=== PATIENT | male | born 1940 | race Caucasian/White ===

== ENCOUNTER 2022-02-12 10:54 | Emergency (ER) | payer OTHER, SELFPAY ==
[2022-02-12] VITALS (75 sets, daily range): BP systolic 117–180; BP diastolic 52–94; PULSE 48–69; RESP 12–26; TEMP 36.8; O2SAT 92–100
--- NOTE | ~2022-02-12 | CT_ITS ---
EXAMINATION: CT abdomen pelvis w con DATE: 02/12/2022 12:37 INDICATION: Abdominal pain, nausea and vomiting TECHNIQUE: Computed tomography (CT) of the abdomen and pelvis was performed with 100 mL Omnipaque-350 intravenous contrast. Automated exposure control and iterative reconstruction technique were employe d. The dose-length product was 891.61 mGy-cm. COMPARISON: None FINDINGS: Mild emphysema at the right lower lobe. 4-5 mm nodule in the left lower lobe and 6 mm triangular like ly intrafissural lymph node at the caudal aspect of the right major fissure. Heart size is normal. At herosclerotic coronary artery calcification. No pericardial or pleural effusion. Small sliding-type h iatal hernia. Cholecystectomy clips the gallbladder fossa. There is thrombosis of the left portal vei n and the posterior branches of the right portal vein. Small amount of perihepatic ascites along the posterior margin of the right hepatic lobe. Secondary likely transient hepatic attenuation difference in the liver. Spleen, bilateral adrenal glands and left kidney are normal. Cortical scarring and 1.6 cm rim calcified cyst at the upper pole of the right kidney. Multiple dystrophic calcifications in t he pancreas which is likely sequela of chronic pancreatitis. Bowels including the appendix are normal . Decompressed bladder is normal. No abscess or free intraperitoneal gas. There is calcified atheroscle rosis of the aorta and many of the other arteries. No pathologically enlarged abdominal or pelvic lym phadenopathy. 4 and L5 laminectomies with combined instrumented L4-S1 anterior and posterior spinal f usions with interbody bone graft cages and bilateral vertical jamshid and pedicle screw fixations. Severe spondylosis at L2-L3 and otherwise mild to moderate spondylosis in the remainder of the lumbar and l ower thoracic spine. IMPRESSION: 1. 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 2. Small sliding-type hiatal hernia. 3. Multiple small pancreatic calcifications consistent with sequela of chronic pancreatitis. 4. Mild emphysema with indeterminate 4-5 mm left lower lobe nodule. Consider optional 12 month follow -up low-dose noncontrast chest CT. Reviewed, dictated and finalized at location A. IMPRESSION: 1. 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 2. Small sliding-type hiatal hernia. 3. Multiple small pancreatic calcifications consistent with sequela of chronic pancreatitis. 4. Mild emphysema with indeterminate 4-5 mm left lower lobe nodule. Consider op tional 12 month follow-up low-dose noncontrast chest CT.
--- NOTE | 2022-02-12 11:02 | ED.ABDPAIN ---
HPI - Abdominal Pain General Chief Complaint: Abdominal Pain Stated Complaint: abd pain (has stage IV bladder cancer) Time Seen by Provider: 02/12/22 10:57 Source: RN notes reviewed History of Present Illness HPI narrative: Patient presents emergency department from home for abdominal pain. Patient states pain began 2 days ago pain is located diffusely throughout the abdomen and radiates around to the back states is associated with nausea but denies any vomiting denies any fevers or chills chest pain shortness of breath or any other symptoms. States he has not take anything for the pain today pain is described as aching and cramping in nature. [facility] Related Data Home Medications Medication Instructions Recorded Confirmed atorvastatin 80 mg tablet mg 02/12/22 02/12/22 metformin 500 mg tablet,extended mg PO 02/12/22 release 24 hr metoprolol succinate 100 mg mg PO 02/12/22 tablet,extended release 24 hr morphine 15 mg tablet,extended mg PO 02/12/22 release oxycodone 10 mg tablet mg 02/12/22 tamsulosin 0.4 mg capsule mg PO 02/12/22 Allergies Allergy/AdvReac Type Severity Reaction Status Date / Time baclofen AdvReac Nausea and Verified 02/12/22 11:06 Vomiting gabapentin AdvReac Nausea and Verified 02/12/22 11:06 Vomiting Review of Systems Review of Systems: Gen.: Denies fevers or chills ENT: Denies congestion Respiratory: Denies shortness of breath or cough CV: Denies chest pain or palpitations GI: See HPI Musculoskeletal: Denies back pain or muscle pain Neuro: Denies numbness, tingling, weakness or focal weakness Skin: Denies rash Except as documented, all other systems reviewed and negative [facility] Past Medical History Medical History (Updated 02/12/22 @ 15:15 by Maurisio Babcock DO) Bladder cancer Social History Social History (Updated 02/12/22 @ 11:04 by Maurisio Babcock DO) Smoking status: Never smoker Exam Narrative: APPEARANCE: No acute distress, nontoxic, resting in bed HEENT: Normocephalic, atraumatic, OMM RESPIRATORY: No respiratory distress, clear to auscultation bilaterally with no rhonchi wheezing or rales CARDIOVASCULAR: RRR s murmur ABDOMINAL: Soft nondistended diffusely tender to palpation no rebound or guarding MUSCULOSKELETAl: Moves all extremities. No clubbing, cyanosis or edema. NEURO: Awake and alert. Following commands, speech normal, no focal deficits SKIN:: Warm, dry. Normal Color PSYCHIATRIC: Normal affect/mood Course Course Emergency Course: Discussed with patient family results of work-up and need for admission and request transfer to [facility] as the patient is treated at [facility] Discussed with Dr. Lagunas for oncology at [facility] distantly request the patient be started on Lovenox the patient is accepted at [facility] under Dr. Rivera Patient plan for transfer in agreement Vital Signs Vital signs: Vital Signs Temperature 98.2 F 02/12/22 11:00 Pulse Rate 61 02/12/22 11:00 Respiratory Rate 20 02/12/22 11:00 Blood Pressure 171/64 H 02/12/22 11:00 Pulse Oximetry 98 02/12/22 11:00 Oxygen Delivery Room Air 02/12/22 11:00 Temperature 98.2 F 02/12/22 11:00 Pulse Rate 59 L 02/12/22 14:15 Respiratory Rate 19 02/12/22 14:15 Blood Pressure 161/66 H 02/12/22 13:16 Pulse Oximetry 97 02/12/22 14:15 Oxygen Delivery Room Air 02/12/22 11:00 MDM - Abdominal Pain Lab Data Result diagrams: 02/12/22 11:07 02/12/22 11:07 Labs: Lab Results 02/12/22 02/12/22 02/12/22 Range/Units 11:07 11:07 11:07 WBC 10.3 H (4.5-10.0) K/mm3 RBC 4.27 L (4.6-6.20) M/mm3 Hgb 13.6 L (14.0-18.0) g/dL Hct 40.6 L (42.0-52.0) % MCV 95.1 (80-100) fl MCH 31.9 (26-34) pg MCHC 33.5 (32-36) g/dl RDW 13.8 (11.5-14.5) % Plt Count 143 L (150-375)
[2022-02-12] MEDS: SODIUM CHLORIDE 0.9% IV 1,000 ML 999 ML IV CONT (11:15)
[2022-02-12 11:16] LABS: Basophils Absolute Auto 0.1 K/mm3 (0.0-0.1); Basophils Percent Auto 0.6 % (0.2-1.2); Eosinophils Absolute Auto 0.2 K/mm3 (0-0.3); Eosinophils Percent Auto 1.9 % (0-4.4); Hematocrit 40.6 % (42.0-52.0); Hemoglobin 13.6 g/dL (14.0-18.0); Immature Granulocyte Absolute 0.03 K/mm3 (0.00-0.031); Immature Granulocyte Percent A 0.3 % (0-0.5); Lymphocytes Absolute Auto 0.89 K/mm3 (0.9-3.2); Lymphocytes Percent Auto 8.6 % (18.3-44.2); Mean Corpuscular HGB Conc 33.5 g/dl (32-36); Mean Corpuscular Hemoglobin 31.9 pg (26-34); Mean Corpuscular Volume 95.1 fl (80-100); Mean Platelet Volume 9.9 fl (7.4-10.4); Monocytes Absolute Auto 1.2 K/mm3 (0.1-0.6); Monocytes Percent Auto 11.2 % (2.6-8.5); Neutrophils Percent Auto 77.4 % (45.5-73.1); Platelet Count Result 143 k/mm3 (150-375); Red Blood Count 4.27 M/mm3 (4.6-6.20); Red Cell Distribution Width 13.8 % (11.5-14.5); White Blood Count 10.3 K/mm3 (4.5-10.0)
[2022-02-12 11:24] LABS: Lactic Acid Reflex 2.4 mmol/L (0.7-2.0)
[2022-02-12 11:25] LABS: Alanine Aminotransferase 99 U/L (6-50); Albumin Level 3.5 g/dL (3.5-5.1); Alkaline Phosphatase 159 U/L (38-126); Anion Gap 12 mmol/L (8-16); Aspartate Amino Transferase 111 U/L (17-59); Bilirubin,Total 1.8 mg/dL (0.2-1.3); Blood Urea Nitrogen 17 mg/dL (9-20); Calcium 8.5 mg/dL (8.4-10.2); Carbon Dioxide 23 mmol/L (22-30); Chloride 102 mmol/L (98-107); Estimated CRCL calculation 69 ml/min; Estimated Glomerular Filt Rate > 60; Glucose 117 mg/dL (65-110); Lipase 75 U/L (23-300); Potassium 4.3 mmol/L (3.4-5.0); Sodium 137 mmol/L (137-145)
[2022-02-12 11:26] LABS: INR 1.3
[2022-02-12 11:27] LABS: Partial Thromboplastin Time 35.8 SECONDS (22.3-36.8)
[2022-02-12 12:47] LABS: Appearance Urine Clear (Clear); Bilirubin Urine 1+ (Negative); Color Urine Orange (Yellow); Glucose Urine UA Trace mg/dL (Negative); Ketones Urine Trace mg/dL (Negative); Leukocyte Esterase Ur Negative LEU/UL (Negative); Nitrate Urine Positive (Negative); Protein Urine 1+ mg/dL (Negative)
[2022-02-12 12:56] LABS: Add Urine Microscopic? YES; Blood Urine Trace-Intact (Negative)
[2022-02-12 12:57] LABS: Mucus Urine Heavy /lpf; RBC Urine 0-2 /hpf (0-2); Squamous Epithelial Cell Urine Few /hpf (Few); WBC Urine 0-3 /hpf (0-3)
[2022-02-12] MEDS: MORPHINE SULFATE (*CRX) 2 MG/ML INJ IV PUSH ×2 (13:33→20:25)
--- NOTE | 2022-02-12 13:39 | ECG_ITS ---
Measurements Intervals [place] Rate: 59 P: 61 PA: 169 QRS: -34 QRSD: 118 T: 48 QT: 499 QTc: 495 Interpretive Statements SINUS BRADYCARDIA LEFT AXIS DEVIATION INTRAVENTRICULAR CONDUCTION DELAY DELAYED PRECORDIAL R/S TRANSITION PROLONGED QT INTERVAL ABNORMAL ECG NO PREVIOUS ECG AVAILABLE FOR COMPARISON Electronically Signed On 02-12-2022 18:38:56 CDT by Evangelist Rand D.O.
[2022-02-12 14:13] LABS: Reflex Lactic Acid Yes or No Add Lactic
[2022-02-12 14:54] LABS: Lactic Acid 2.4 mmol/L (0.7-2.0)
[2022-02-12] MEDS: ENOXAPARIN 100 MG/ML SYRINGE 94 MG SUB-Q (15:52)
[2022-02-12] MEDS: SODIUM CHLORIDE 0.9% IV 1,000 ML 100 ML IV CONT (15:53)
[2022-02-12] MEDS: ONDANSETRON INJ 4 MG/2 ML VIAL IV PUSH (15:55)
[2022-02-12 17:34] LABS: SARS-CoV-2 RNA PCR Negative
--- NOTE | 2022-02-12 18:12 | PC.NURSE ---
updated Ailyn on Covid test result, no guess on appropriate bed assignment
--- NOTE | 2022-02-12 20:17 | PC.NURSE ---
PT NOTES INCREASED PAIN, ASKING FOR PAIN MED. ORDER FOR MORPHINE [address] MG [address] X1 FROM [address] COON
== END 2022-02-12 22:57 | disposition short-term general hospital (02) ==
PROVIDERS: Emergency Provider Emergency Medicine; PCP Family Medicine
DX: I81 Portal vein thrombosis (principal); C67.9 Malignant neoplasm of bladder, unspecified; R00.1 Bradycardia, unspecified
CPT/HCPCS: 36415; 74177; 80053; 81001; 83605; 83690; 85025; 85610; 85730; 93005; 96365; 96366; 96367; 96372; 96375; 96376; 99285; C9803; J0131; J0696; J1650; J2270; J2405; J7030; Q9967; U0003; U0005

== ENCOUNTER 2022-02-26 07:14 | Emergency (ER) | payer OTHER, SELFPAY ==
--- NOTE | ~2022-02-26 | CT_ITS ---
EXAMINATION: CT abdomen pelvis w con DATE: 02/26/2022 10:03 INDICATION: Right upper quadrant abdominal pain. TECHNIQUE: Computed tomography (CT) of the abdomen and pelvis was performed with 100 mL Omnipaque 350 intravenous contrast. Automated exposure control and iterative reconstruction technique were employe d. The dose-length product was 1304.85 mGy-cm. COMPARISON: CT abdomen and pelvis 02/12/2022 FINDINGS: The visualized portions of the lung bases demonstrate emphysema and mild atelectasis. There are a few nodules in the lungs measuring up to 7 mm in left lower lobe. No pleural effusion. The hea rt size is normal. There are coronary artery calcifications. No pericardial effusion. There is a smal l sliding hiatal hernia. Again 3 seen is thrombosis of multiple separate portal vein branches. There is an ill-defined 12.9 x 8.5 cm hyperenhancing mass in the liver centered in segment VIII. There are changes of cholecystectomy. There are calcifications in the pancreas, consistent with chronic pancrea titis. The spleen and adrenal glands are normal. There is focal volume loss of right kidney. Left kid sandeep is normal. There is diverticulosis of the colon without evidence of diverticulitis. The appendix is normal. There is a moderate volume of ascites. Paraesophageal varices are noted. There are no path ologically enlarged lymph nodes. There is severe lumbar spondylosis. There are changes of anterior an d posterior fusion procedures from L4 to S1. IMPRESSION: 1. Thrombosis of multiple portal vein branches again seen. 2. 12.9 cm mass in the liver, which may be malignancy such as hepatocellular carcinoma, cholangiocarc inoma, or metastatic disease or may be secondary to altered contrast enhancement dynamics (transient hepatic attenuation difference). 3. Moderate volume of ascites. 4. Pulmonary nodules measuring up to 7 mm, which may be granulomatous disease or metastatic disease. Reviewed, dictated and finalized at location A. IMPRESSION: 1. Thrombosis of multiple portal vein branches again seen. 2. 12.9 cm mass in the liver, which may be malignancy such as hepatocellular ca rcinoma, cholangiocarcinoma, or metastatic disease or may be secondary to alter ed contrast enhancement dynamics (transient hepatic attenuation difference). 3. Moderate volume of ascites. 4. Pulmonary nodules measuring up to 7 mm, which may be granulomatous disease o r metastatic disease.
--- NOTE | ~2022-02-26 | XR_ITS ---
EXAMINATION: XR chest 1V portable DATE: 02/26/2022 07:50 INDICATION: Shortness of breath. Abdominal pain. TECHNIQUE: A single frontal view of the chest was obtained on 2 radiographs. COMPARISON: CT abdomen and pelvis 02/12/2022 FINDINGS: The chest demonstrates clear lungs without pneumonia, pleural effusion, or pneumothorax. Th e heart size is normal. A small coil of wire overlies left hilum. There are surgical clips in left ne ck. IMPRESSION: 1. No acute cardiopulmonary disease. Reviewed, dictated and finalized at location A.
[2022-02-26 07:19] VITALS: BP 123/66; PULSE 61; RESP 19; TEMP 36.8; O2SAT 95
--- NOTE | 2022-02-26 07:31 | ECG_ITS ---
Measurements Intervals [place] Rate: 67 P: 59 NM: 157 QRS: -36 QRSD: 125 T: 62 QT: 465 QTc: 491 Interpretive Statements SINUS RHYTHM LEFT AXIS DEVIATION INTRAVENTRICULAR CONDUCTION DELAY BORDERLINE R WAVE PROGRESSION, ANTERIOR LEADS BORDERLINE ST-T WAVE ABNORMALITY- HIGH LATERAL LEADS BORDERLINE ECG COMPARED TO ECG 02/12/2022 13:54:47 PROLONGED QT INTERVAL HAS RESOLVED Electronically Signed On 02-26-2022 10:12:50 CDT by Evangelist Rand D.O.
[2022-02-26] MEDS: ONDANSETRON INJ 4 MG/2 ML VIAL IV PUSH (08:03)
[2022-02-26] MEDS: HYDROmorphone HCL INJ (*CRX) 1 MG/ML SYR IV PUSH (08:03)
--- NOTE | 2022-02-26 08:21 | ED.ABDPAIN ---
HPI - Abdominal Pain General Chief Complaint: Abdominal Pain Stated Complaint: SOB Time Seen by Provider: 02/26/22 07:36 Source: patient, family, RN notes reviewed and old records reviewed Mode of arrival: EMS Limitations: no limitations History of Present Illness HPI narrative: This is an 81 year old male with stage 4 Bladder cancer who presents for evaluation of upper abdominal pain. 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 He was transferred to [facility] at that time and he kept in hospital for 4 days. He was discharged home on eliquis , morphine 15 mg BID and oxycodone 10 mg. He states his abdominal pain had been under control until this past . His pain has continued to worsen despite taking his morphine and oxycodone at 5 am this morning. His family at bedside also reports patient had oxygen saturation of 88% on room air at home last night. They are unsure of fever or chills, but they reports patient woke up sweaty this morning. They tried to go to [facility] ER on Monday but the ER wait was too long. He denies chest pain, vomiting or diarrhea. Related Data Home Medications Medication Instructions Recorded Confirmed atorvastatin 80 mg tablet mg 02/12/22 02/12/22 metformin 500 mg tablet,extended mg PO 02/12/22 release 24 hr metoprolol succinate 100 mg mg PO 02/12/22 tablet,extended release 24 hr morphine 15 mg tablet,extended mg PO 02/12/22 release oxycodone 10 mg tablet mg 02/12/22 tamsulosin 0.4 mg capsule mg PO 02/12/22 Allergies Allergy/AdvReac Type Severity Reaction Status Date / Time baclofen AdvReac Nausea and Verified 02/26/22 07:39 Vomiting gabapentin AdvReac Nausea and Verified 02/26/22 07:39 Vomiting Review of Systems Review of Systems: All systems reviewed & are unremarkable except as noted in HPI and below Constitutional: Constitutional: Reports fatigue and Reports weakness ENT: Denies nasal congestion Cardiovascular: Cardiovascular: Denies chest pain Respiratory: Respiratory: Denies chest congestion, Denies cough and Reports dyspnea Gastrointestinal: Gastrointestinal: Reports abdominal pain, Denies diarrhea, Denies nausea and Denies vomiting PMFSH Past Medical History Medical History (Updated 02/26/22 @ 13:59 by Layla Yañez MD) Bladder cancer Diabetes mellitus Hypertension Social History Social History (Updated 02/12/22 @ 11:04 by Maurisio Babcock DO) Smoking status: Never smoker Exam Const: General: no acute distress and alert Orientation/consciousness: patient oriented x3 Limitations: no limitations HENMT: Head: normal to inspection Throat: posterior oropharynx normal Eyes: EOM: EOMs intact bilaterally Chest: Chest palpation & inspection: normal inspection of the chest Resp: Effort & Inspection: normal respiratory effort Auscultation: clear to auscultation bilaterally Cardio: Rate: regular rate Rhythm: regular rhythm Heart sounds: no murmurs GI: GI Palp: Yes Soft to palpation, Yes Tenderness to palpation present (GI) (RUQ, epigastric), Yes Guarding due to palpation present (GI), No Rigid due to palpation and No Hernia present Auscultation: normal bowel sounds Skin: General skin exam: normal color Rashes: no rashes Neuro: General: patient oriented x3, moves all extremities and CN's II-XI intact bilaterally Extrem: General: edema (bilateral pedal edema) Psych: Mental Status: mental status grossly normal Course Reevaluation(s) Reevaluation #1: I Discussed with daughter and patient that LFTS are worsening with more ascites and liver mass on CT. I offered transferred to [facility]. PAiazeb states he is too tired and he does not want to be transferred. Patient's daughter spoke to patient and they would like to pursue hospice. I Spoke with Dr. Martínez of oncologist at [facility], and he agrees it is reasonable to place patient on hospice if that is his w
[2022-02-26 08:22] LABS: Basophils Absolute Auto 0.1 K/mm3 (0.0-0.1); Basophils Percent Auto 0.7 % (0.2-1.2); Eosinophils Absolute Auto 0.2 K/mm3 (0-0.3); Eosinophils Percent Auto 2.1 % (0-4.4); Hematocrit 37.1 % (42.0-52.0); Hemoglobin 12.1 g/dL (14.0-18.0); Immature Granulocyte Absolute 0.05 K/mm3 (0.00-0.031); Immature Granulocyte Percent A 0.4 % (0-0.5); Lymphocytes Absolute Auto 1.21 K/mm3 (0.9-3.2); Lymphocytes Percent Auto 10.4 % (18.3-44.2); Mean Corpuscular HGB Conc 32.6 g/dl (32-36); Mean Corpuscular Hemoglobin 30.6 pg (26-34); Mean Corpuscular Volume 93.7 fl (80-100); Mean Platelet Volume 11.7 fl (7.4-10.4); Monocytes Percent Auto 16.8 % (2.6-8.5); Neutrophils Absolute Auto 8.1 K/mm3 (1.3-6.7); Neutrophils Percent Auto 69.6 % (45.5-73.1); Platelet Count Result 177 k/mm3 (150-375); Red Blood Count 3.96 M/mm3 (4.6-6.20); Red Cell Distribution Width 15.5 % (11.5-14.5); White Blood Count 11.6 K/mm3 (4.5-10.0)
[2022-02-26 08:35] LABS: Alanine Aminotransferase 190 U/L (6-50); Albumin Level 2.5 g/dL (3.5-5.1); Alkaline Phosphatase 230 U/L (38-126); Anion Gap 12 mmol/L (8-16); Aspartate Amino Transferase 317 U/L (17-59); Bilirubin,Total 2.9 mg/dL (0.2-1.3); Blood Urea Nitrogen 29 mg/dL (9-20); Calcium 8.2 mg/dL (8.4-10.2); Carbon Dioxide 22 mmol/L (22-30); Chloride 101 mmol/L (98-107); Estimated CRCL calculation 52 ml/min; Estimated Glomerular Filt Rate > 60; Glucose 107 mg/dL (65-110); Lipase 93 U/L (23-300); Potassium 3.9 mmol/L (3.4-5.0); Sodium 135 mmol/L (137-145)
[2022-02-26 08:36] LABS: INR 3.2; Prothrombin Time 31.4 Seconds (11.1-14.7)
[2022-02-26 08:37] LABS: Partial Thromboplastin Time 46.8 SECONDS (22.3-36.8)
[2022-02-26 08:43] LABS: Lactic Acid Reflex 5.7 mmol/L (0.7-2.0)
[2022-02-26] MEDS: SODIUM CHLORIDE 0.9% IV 1,000 ML 999 ML IV CONT ×2 (09:42→10:48)
[2022-02-26 09:45] VITALS: BP 127/36; PULSE 63; RESP 20; O2SAT 95
[2022-02-26 11:08] LABS: Mucus Urine Few /lpf; Squamous Epithelial Cell Urine Rare /hpf (Few)
[2022-02-26 11:09] LABS: Appearance Urine Clear (Clear); Bilirubin Urine 1+ (Negative); Blood Urine Negative (Negative); Color Urine Yellow (Yellow); Glucose Urine UA Negative (Negative); Ketones Urine Negative (Negative); Leukocyte Esterase Ur Negative LEU/UL (Negative); Nitrate Urine Negative (Negative); Protein Urine Trace mg/dL (Negative); Specific Grav Ur 1.015 (1.001-1.035)
--- NOTE | 2022-02-26 11:19 | PCCCNOTE ---
Called to ED for Hospice referral. I spoke with both pt and ketty (PHUONG) [place] [phone] regarding Hospice service. They have used [facility] in the past (for spouse) and would like to use them again. Yari with [facility] contacted and information and referral order will be faxed over. They will contact daughter on set up meeting.
[2022-02-26 11:20] LABS: Reflex Lactic Acid Yes or No Add Lactic
[2022-02-26 11:33] LABS: Add Urine Microscopic? YES
[2022-02-26 12:09] LABS: Lactic Acid 5.1 mmol/L (0.7-2.0)
[2022-02-26 14:28] VITALS: BP 117/59; PULSE 88; RESP 18; O2SAT 97
== END 2022-02-26 14:30 | disposition hospice, home (50) ==
PROVIDERS: Emergency Provider General Practice; PCP Family Medicine
DX: C67.9 Malignant neoplasm of bladder, unspecified (principal); R18.8 Other ascites; I81 Portal vein thrombosis; K76.9 Liver disease, unspecified; R91.8 Other nonspecific abnormal finding of lung field; R10.9 Unspecified abdominal pain; I10 Essential (primary) hypertension; E11.9 Type 2 diabetes mellitus without complications; Z79.84 Long term (current) use of oral hypoglycemic drugs; Z79.891 Long term (current) use of opiate analgesic
CPT/HCPCS: 36415; 71045; 74177; 80053; 81001; 83605; 83690; 85025; 85610; 85730; 87077; 87086; 87186; 93005; 96361; 96374; 96375; 99284; J1170; J2405; J7030; Q9967